=== PATIENT | male | born 1990 | race Caucasian/White ===

== ENCOUNTER 2019-10-17 11:23 | Emergency (ER) | payer OTHER ==
[2019-10-17 11:55] VITALS: BP 137/91
[2019-10-17] MEDS ORDERED: KETOROLAC 30 MG/ML VIAL IVP STA (12:10)
[2019-10-17] MEDS ORDERED: HYDROmorphone 1 MG/ML CARPUJECT IVP STA (12:10)
[2019-10-17] MEDS ORDERED: ONDANSETRON 4 MG/2 ML VIAL IVP STA (12:10)
[2019-10-17 12:14] LABS: BASOPHILS % (AUTO) 0.1 %; EOSINOPHILS % (AUTO) 0.1 %; HGB - HEMOGLOBIN 16.1 g/dL (14.0-18.0); LYMPHOCYTES # (AUTO) 1.1 10^3/uL (1.5-3.5); LYMPHOCYTES % (AUTO) 12.4 %; MEAN CORPUSCULAR HEMOGLOBIN 29.9 pg (27.0-31.0); MEAN CORPUSCULAR VOLUME 85.3 fL (80.0-94.0); MEAN PLATELET VOLUME 9.6 fL (7.4-11.4); MONOCYTES # (AUTO) 0.4 10^3/uL (0.0-1.0); MONOCYTES % (AUTO) 4.4 %; NEUTROPHILS # (AUTO) 7.6 10^3/uL (1.5-6.6); NEUTROPHILS % (AUTO) 82.6 %; PLT - PLATELET COUNT 197 10^3/uL (130-450); RED BLOOD COUNT 5.39 10^6/uL (4.70-6.10); RED CELL DISTRIBUTION WIDTH 11.9 % (12.0-15.0); WHITE BLOOD COUNT 9.1 x10^3/uL (4.8-10.8)
--- NOTE | 2019-10-17 12:17 | ED Physician Documentation ---
PD HPI ABD PAIN - Stated complaint Stated Complaint: MALE - Chief complaint Chief Complaint: Abd Pain - History obtained from History obtained from: Patient - History of Present Illness Timing - onset: Today (He had left flank pain for about 15 minutes a week ago, then it recurred with a vengeance about 2 hours ago with severe pain that is moved a bit from the left flank to the left mid abdomen laterally. He is nauseous and sweaty and feels like he is having difficulty urinating. No hematuria or trouble with bowel movements. He has not vomited. He has not had a kidney stone in the past that he knows of. His father has had one.) Review of Systems Constitutional: denies: Fever, Chills Nose: reports: Reviewed and negative Cardiac: reports: Reviewed and negative Respiratory: reports: Reviewed and negative PD PAST MEDICAL HISTORY - Present Medications Home Medications: Ambulatory Orders Medication Instructions Recorded Confirmed Ibuprofen [Motrin] 800 mg PO Q8H PRN #30 tablet 10/17/19 Ondansetron Odt [Zofran] 4 mg TL Q6H PRN #10 tablet 10/17/19 Oxycodone HCl/Acetaminophen 1 - 2 each PO Q6H PRN #14 tablet 10/17/19 [Percocet 5-325 mg Tablet] Tamsulosin [Flomax] 0.4 mg PO DAILY #14 capsule 10/17/19 - Allergies Allergies/Adverse Reactions: Allergies Allergy/AdvReac Type Severity Reaction Status Date / Time No Known Drug Allergies Allergy Verified 10/17/19 11:54 PD ED PE NORMAL - Vitals Vital signs reviewed: Yes - General General: Alert and oriented X 3, Other (Appears uncomfortable, sweaty) - Cardiac Cardiac: RRR, No murmur - Respiratory Respiratory: No respiratory distress, Clear bilaterally - Abdomen Abdomen: Soft, Non tender - Back Back: No CVA TTP, No spinal TTP - Derm Derm: Normal color, Warm and dry - Extremities Extremities: No edema, No calf tenderness / cord - Neuro Neuro: Alert and oriented X 3, Normal speech Results - Vitals Vitals: Vital Signs - 24 hr 10/17/19 10/17/19 11:51 11:54 Temperature 37.2 C Heart Rate 66 66 Respiratory 22 22 Rate Blood Pressure 137/91 H 137/91 H O2 Saturation 100 100 Oxygen O2 Source Room air - Labs Labs: Laboratory Tests 10/17/19 10/17/19 12:07 12:07 WBC 9.1 RBC 5.39 Hgb 16.1 Hct 46.0 MCV 85.3 MCH 29.9 MCHC 35.0 RDW 11.9 L Plt Count 197 MPV 9.6 Neut # (Auto) 7.6 H Lymph # (Auto) 1.1 L Cherry # (Auto) 0.4 Eos # (Auto) 0.0 Baso # (Auto) 0.0 Absolute Nucleated RBC 0.00 Nucleated RBC % 0.0 Sodium 137 Potassium 3.6 Chloride 98 L Carbon Dioxide 23 Anion Gap 16.0 H BUN 13 Creatinine 1.2 Estimated GFR (MDRD) 71 L Glucose 124 H Calcium 9.3 Total Bilirubin 1.8 H AST 19 ALT 18 Alkaline Phosphatase 72 Total Protein 7.1 Albumin 4.9 Globulin 2.2 Albumin/Globulin Ratio 2.2 Lipase 31 - Rads (name of study) CT KUB Radiology: EMP read contemporaneously (Complex splenic cyst, 3 mm left UVJ stone and multiple infra renal calculi) PD MEDICAL DECISION MAKING - ED course ED course: This is a young man who presents with what seems like pretty classic renal colic. He was medicated after my initial evaluation with 1 mg of Dilaudid, 30 mg of Toradol, and 4 mg of Zofran IV. Feeling much better and basically pain-free after that, CT results as shown and follow-up advised. Given a urine strainer. - Consults Consults: Consulted (name) Departure - Departure Disposition: 01 Home, Self Care Clinical Impression: Renal colic Condition: Good Record reviewed to determine appropriate education?: Yes Instructions: ED Stone Renal W Colic Prescriptions: Ibuprofen [Motrin] 800 mg PO Q8H PRN #30 tablet PRN Reason: PAIN &/OR FEVER Ondansetron Odt [Zofran] 4 mg TL Q6H PRN #10 tablet PRN Reason: Nausea / Vomiting Oxycodone HCl/Acetaminophen [Percocet 5-325 mg Tablet] 1 - 2 each PO Q6H PRN #14 tablet PRN Reason: pain Tamsulosin [Flomax] 0.4 mg PO DAILY #14 capsule Comments: Take the copy of the CAT scan read, discussed it with your flight surgeon, he or she may want to perform further work-up on the splenic cyst, strain your urine as discussed and take any results to your flight surgeon as well. Return for new or worsening symptoms. Do not drink or drive while taking prescription pain medication. Forms: Activity restrictions
[2019-10-17 12:29] LABS: ALBUMIN 4.9 g/dL (3.2-5.5); ALBUMIN/GLOBULIN RATIO 2.2 (1.0-2.2); BILIRUBIN,TOTAL 1.8 mg/dL (0.2-1.0); CALCIUM 9.3 mg/dL (8.5-10.3); CREATININE 1.2 mg/dL (0.6-1.2); TOTAL PROTEIN 7.1 g/dL (6.7-8.2)
--- NOTE | 2019-10-17 13:34 | CT Report ---
Reason: flank pain, kidney stone suspected Procedure Date: 10/17/2019 Accession Number: [id number] / [id number] Procedure: CT - Abdomen/Pelvis WO CPT Code: Final Report FULL RESULT: EXAM: CT ABDOMEN AND PELVIS (CT KUB) EXAM DATE: 10/17/2019 01:05 PM. CLINICAL HISTORY: Flank pain, kidney stone suspected. COMPARISONS: None. TECHNIQUE: Routine axial helical CT imaging was performed through the abdomen and pelvis without IV contrast. Reconstructions: Coronal and sagittal. In accordance with CT protocol optimization, one or more of the following dose reduction techniques were utilized for this exam: automated exposure control, adjustment of mA and/or KV based on patient size, or use of iterative reconstructive technique. FINDINGS: Lung Bases: Unremarkable. Right Kidney/Ureter: 2 mm upper pole, 3 mm mid pole, 3 mm lower pole right renal calculi. No ureteral calculus. No hydronephrosis or hydroureter. No perinephric or periureteral fat stranding. Left Kidney/Ureter: 1 mm upper pole, 1 mm lower pole left renal calculi. 4 mm calculus of the left ureterovesical junction. Minimal left hydronephrosis and hydroureter. Minimal left periureteral fat stranding. Other Solid Organs: Noncontrast images of the liver, pancreas, and adrenal glands are unremarkable. Multilobular approximately 3.4 cm posterior superior splenic cyst with rim calcification of some of the cystic components. Spleen normal in size. Gallbladder/Bile Ducts: Unremarkable. Peritoneal Cavity: No free fluid, free air or andriy adenopathy. Bowel is grossly unremarkable. Pelvic Organs: 4 mm calculus at the left ureterovesical junction. Bladder small in volume. Prostate gland and seminal vesicles are unremarkable. Vasculature: Unremarkable. Other: Body wall unremarkable. IMPRESSION: 1. 3 mm minimally obstructing calculus at the left ureterovesical junction. 2. 1 mm upper pole and 1 mm lower pole left intrarenal calculi. 3. 2 mm upper pole, 3 mm mid pole, 3 mm lower pole right intrarenal calculi. 4. Approximately 3.4 cm multilobular splenic cyst with some components showing dystrophic rim calcification. The findings could reflect residua of remote infection or trauma. [facility]
== END 2019-10-17 14:15 | disposition home or self-care (01) ==
LOC: ED 11:23
DX: N20.1 Calculus of ureter (principal); D73.4 Cyst of spleen
CPT/HCPCS: 36415; 74176; 80053; 83690; 85025; 99283; 99284; J1170